=== PATIENT | male | born 1995 | race Caucasian/White ===

== ENCOUNTER 2022-03-27 17:44 | Emergency (ER) | payer SELFPAY ==
[2022-03-27] MEDS ORDERED: NAPROXEN500 MG PO (21:59)
[2022-03-27] MEDS ORDERED: NORCO 5-325 TA1 EACH PO (21:59)
== END 2022-03-27 22:08 | disposition home or self-care (01) ==
LOC: FER 17:44
DX: M25.521 Pain in right elbow (principal); M25.511 Pain in right shoulder; F17.210 Nicotine dependence, cigarettes, uncomplicated; Z28.310 Unvaccinated for COVID-19
CPT/HCPCS: 73080

== ENCOUNTER 2022-04-01 14:41 | Emergency (ER) | payer OTHER ==
[~2022-04-01 14:41] MED LIST: NAPROXEN500 MG PO; NORCO 5-325 TA1 EACH PO
== END 2022-04-01 16:20 | disposition home or self-care (01) ==
LOC: FER 14:41
DX: M77.11 Lateral epicondylitis, right elbow (principal)
CPT/HCPCS: J1100